=== PATIENT | male | born 1980 | race Two or more races ===

== ENCOUNTER 2016-12-21 21:54 | Emergency (ER) | payer SELFPAY ==
[2016-12-21] MEDS ORDERED: fentaNYL 100 MCG/2 ML INJ ONE (22:23)
[2016-12-21] MEDS ORDERED: fentaNYL 100 MCG/2 ML INJ IVP ONE (22:41)
--- NOTE | 2016-12-21 22:52 | EDPHY ---
H & P Time Seen by Provider: 12/21/16 22:20 HPI/ROS: CHIEF COMPLAINT: left shoulder pain HISTORY OF PRESENT ILLNESS: 36-year-old male presents emergency department complaining of left shoulder pain. Patient was walking up the stairs when he slipped and fell onto his left shoulder. He is [id number]. He denies previous injury to this shoulder, no head strike, no other complaints. He denies numbness or tingling in this arm. Smoking Status: Current every day smoker Physical Exam: GEN: Awake, alert, oriented, no acute distress RESP: nl resp effort MSK: Left shoulder with decreased range of motion due to pain, obvious shoulder dislocation and deformity, no skin tenting, left elbow with full range of motion, nontender, 2+ radial pulses, sensation intact to light touch, normal deltoid sensation SKIN: No break in skin Constitutional: Initial Vital Signs Heart Rate 80 12/21/16 22:06 Respiratory Rate 24 H 12/21/16 22:06 Blood Pressure 148/97 H 12/21/16 22:06 O2 Sat (%) 94 12/21/16 22:06 O2 Delivery Mode Room Air Allergies/Adverse Reactions: No Known Allergies Allergy (Unverified 12/21/16 22:06) Home Medications: Medication Instructions Recorded Hydrocodone/APAP 5/325 [[place] 1 tab PO Q4H PRN #14 tab 12/21/16 5/325] MDM/Departure - MDM Imaging: I viewed and interpreted images myself Procedures: Procedure: Dislocation reduction. Indication: Dislocation of the left shoulder. Risks, benefits, alternatives discussed with the patient. Consent was obtained. The left shoulder was reduced using a combination of the Leung technique and scapular manipulation without complications. The patient has a normal neurovascular exam distal to the injury post reduction. Patient tolerated the procedure well and is significantly more comfortable. Post reduction x-ray demonstrates reduction of the joint to the anatomic position. The procedure was performed by myself. Medications Given: Discontinued Medications Fentanyl (Sublimaze) 100 mcg IVP EDNOW ONE Stop: 12/21/16 22:42 Last Admin: 12/21/16 22:30 Dose: 100 mcg - Depart Disposition: Home, Routine, Self-Care Clinical Impression: Shoulder dislocation Qualifiers: Encounter type: initial encounter Laterality: left Qualified Code(s): S43.005A - Unspecified dislocation of left shoulder joint, initial encounter Condition: Good Instructions: Shoulder Dislocation (ED) Additional Instructions: Wear sling, do not lift anything heavier than a glass of water or lift anything over your head until you follow up with the orthopedist or [facility]. I recommend formal physical therapy. Return to the emergency department for any new symptoms or concerns. Take 600 mg of ibuprofen every 8 hours with food, take [place] for severe pain. Do not drink alcohol with this. Prescriptions: Hydrocodone/APAP 5/325 [[place] 5/325] 1 tab PO Q4H PRN #14 tab PRN Reason: Pain, Moderate Referrals: [facility],. [Clinic] - As per Instructions Carlos Kelley MD [Medical Doctor] - As per Instructions (Orthopedist on-call)
[2016-12-21 23:26] VITALS: BP 157/98; PULSE 79; RESP 16; TEMP 98.2; O2SAT 95
== END 2016-12-21 23:26 | disposition home or self-care (01) ==
PROC: 0RSKXZZ Reposition Left Shoulder Joint, External Approach (ICD-10-PCS; principal; 2016-12-21)
DX: S43.005A Unspecified dislocation of left shoulder joint, initial encounter (principal); F17.200 Nicotine dependence, unspecified, uncomplicated; W10.9XXA Fall (on) (from) unspecified stairs and steps, initial encounter; Y93.01 Activity, walking, marching and hiking
CPT/HCPCS: 96374; A4565; J3010

== ENCOUNTER 2017-11-24 20:19 | Emergency (ER) | payer OTHER ==
[2017-11-24] MEDS ORDERED: ONDANSETRON 4 MG/2 ML VIAL IVP ONE (20:45)
[2017-11-24] MEDS ORDERED: LORazepam 2 MG/ML INJ IVP ONE (20:45)
[2017-11-24] MEDS ORDERED: NS 1,000 ML IV ONE (20:46)
--- NOTE | 2017-11-24 20:55 | EDPHY ---
H & P Stated Complaint: c/o n/v/tremors/ann since 1699, pt says heavy drinker - attempting to stop Time Seen by Provider: 11/24/17 20:47 HPI/ROS: CHIEF COMPLAINT: Shaking, vomiting HISTORY OF PRESENT ILLNESS: Patient is a 37-year-old man with a history of alcoholism. He drinks daily. He has had difficulties with withdrawal before. He has never had a seizure. He states that he he had 3 shots this morning and then tried to quit but about an hour ago had another drink because his symptoms were too severe. He was vomiting and having diarrhea. No recent fevers. No abdominal pain. He does have a history of alcoholic gastritis but states that is resolved. REVIEW OF SYSTEMS: Constitutional: denies: chills, fever, recent illness, recent injury EENTM: denies: blurred vision, double vision, nose congestion Respiratory: denies: cough, shortness of breath Cardiac: denies: chest pain, irregular heart rate, lightheadedness, palpitations Gastrointestinal/Abdominal: See HPI denies: abdominal pain, blood streaked stools Genitourinary: denies: dysuria, frequency, hematuria, pain Musculoskeletal: denies: joint pain, muscle pain Skin: denies: lesions, rash, jaundice, bruising Neurological: denies: headache, numbness, paresthesia, tingling, dizziness, weakness Hematologic/Lymphatic: denies: blood clots, easy bleeding, easy bruising Immunologic/allergic: denies: HIV/AIDS, transplant EXAM: GENERAL: Moderate distress HEAD: Atraumatic, normocephalic. EYES: Pupils equal round and reactive to light, extraocular movements intact, sclera anicteric, conjunctiva are normal. ENT: TMs normal, nares patent, oropharynx clear without exudates. Moist mucous membranes. NECK: Normal range of motion, supple without lymphadenopathy or JVD. LUNGS: Breath sounds clear to auscultation bilaterally and equal. No wheezes rales or rhonchi. HEART: Tachycardic, Regular rate and rhythm without murmurs, rubs or gallops. ABDOMEN: Soft, nontender, normoactive bowel sounds. No guarding, no rebound. No masses appreciated. BACK: No CVA tenderness, no spinal tenderness, step-offs or deformities EXTREMITIES: Normal range of motion, no pitting or edema. No clubbing or cyanosis. NEUROLOGICAL: Tremors, Cranial nerves II through XII grossly intact. Normal speech, normal gait. 5/5 strength, normal movement in all extremities, normal sensation PSYCH: Normal mood, normal affect. SKIN: Warm, dry, normal turgor, no visible rashes or lesions. Source: Patient, Family Exam Limitations: Language barrier - Medical/Surgical History Hx Asthma: No Hx Chronic Respiratory Disease: No Hx Diabetes: No Hx Cardiac Disease: Yes Hx Renal Disease: No Hx Cirrhosis: No Hx Alcoholism: Yes Hx HIV/AIDS: No Hx Splenectomy or Spleen Trauma: No Other PMH: PMHx: etoh abuse, hypertension. PSHx: denies - Family History Significant Family History: No pertinent family hx - Social History Smoking Status: Current every day smoker Alcohol Use: Heavy Drug Use: Marijuana Constitutional: Initial Vital Signs Temperature (C) 37 C 11/24/17 20:22 Heart Rate 101 H 11/24/17 20:22 Respiratory Rate 18 11/24/17 20:22 Blood Pressure 195/112 H 11/24/17 20:22 O2 Sat (%) 95 11/24/17 20:22 O2 Delivery Mode Room Air Allergies/Adverse Reactions: No Known Allergies Allergy (Verified 11/24/17 20:38) Home Medications: Medication Instructions Recorded Enalapril Maleate 11/24/17 Zantac 11/24/17 Medical Decision Making ED Course/Re-evaluation: 9:50 p.m. The patient is feeling much better. He is not tachycardic. No tremors. Will send him to the recovery Center with Librium prepack Differential Diagnosis: Partial list of the Differential diagnosis considered include but were not limited to; alcohol withdrawal, tremors, electrolyte abnormality and although unlikely based on the history and physical exam, I also considered head injury, infection. - Data Points Medications Given: Discontinued Medications Chlordiazepoxide (Librium 25 Mg Prepack#6) 1 btl TAKEHOME EDNOW ONE Stop: 11/24/17 21:52 Last Admin: 11/24/17 22:18 Dose: 1 btl Sodium Chloride (Ns) 1,000 mls @ 0 mls/hr IV EDNOW ONE; Wide Open PRN Reason: Protocol Stop: 11/24/17 20:47 Last Admin: 11/24/17 20:50 Dose: 1,000 mls Lorazepam (Ativan Injection) 1 mg IVP EDNOW ONE Stop: 11/24/17 20:46 Last Admin: 11/24/17 20:50 Dose: 1 mg Ondansetron HCl (Zofran) 4 mg IVP EDNOW ONE Stop: 11/24/17 20:46 Last Admin: 11/24/17 20:50 Dose: 4 mg Departure - Departure Disposition: Home, Routine, Self-Care Clinical Impression: Alcohol dependence Qualifiers: Substance use status: in withdrawal Complication of substance-induced condition : uncomplicated Qualified Code(s): F10.230 - Alcohol dependence with withdrawal , uncomplicated Alcohol withdrawal Qualifiers: Complication of substance-induced condition: uncomplicated Qualified Code(s): F10.230 - Alcohol dependence with withdrawal, uncomplicated Condition: Fair Instructions: Chlordiazepoxide (By mouth), Alcohol Withdrawal (ED) Additional Instructions: Go directly to the Addiction recovery Center. --- [facility]aya directamente al [facility] Referrals: NONE *PRIMARY CARE P,. [Primary Care Provider] - As per Instructions Tran Jenkins MD [Medical Doctor] - As per Instructions Print Language: [place]
[2017-11-24] MEDS ORDERED: CHLORDIAZEPOXIDE 25MG PREPK#6 BTL TAKEHOME ONE (21:51)
[2017-11-24 23:25] VITALS: BP 142/87
== END 2017-11-24 23:05 | disposition home or self-care (01) ==
DX: F10.230 Alcohol dependence with withdrawal, uncomplicated (principal); F17.200 Nicotine dependence, unspecified, uncomplicated; E86.9 Volume depletion, unspecified
CPT/HCPCS: 96374; J2060; J2405